=== PATIENT | male | born 1935 | race Caucasian/White ===

== ENCOUNTER 2018-09-08 20:56 | Inpatient (IN) | payer OTHER, MEDICAID ==
[~2018-09-08] VITALS: Ht 167.6 cm; Wt 74.8 kg
[2018-09-08 21:06] VITALS: BP_SYST 127
[2018-09-08 21:40] LABS: BASOPHILS # (AUTO) 0.1 K/uL (0.0-0.2); BASOPHILS % (AUTO) 0.7 % (0.0-2.0); EOSINOPHILS # (AUTO) 0.1 K/uL (0.0-0.4); EOSINOPHILS % (AUTO) 1.6 % (0.0-4.0); HEMOGLOBIN 12.4 g/dL (14.0-18.0); LYMPHOCYTES # (AUTO) 1.7 K/uL (1.0-5.5); LYMPHOCYTES % (AUTO) 22.2 % (20.5-51.5); MEAN CORPUSCULAR HEMOGLOBIN 29 pg (27-31); MEAN CORPUSCULAR HGB CONC 33 % (32-36); MEAN CORPUSCULAR VOLUME 88 fL (79.0-98.0); MONOCYTES # (AUTO) 0.8 K/uL (0.0-1.0); NEUTROPHILS # (AUTO) 4.9 K/uL (1.8-7.7); NEUTROPHILS % (AUTO) 64.5 % (40.0-70.0); PLATELET COUNT (AUTO) 278 K/uL (130-430); RED BLOOD CELL COUNT(AUTO) 4.34 MIL/uL (4.2-6.2); RED CELL DISTRIBUTION WIDTH 14.6 % (9.0-15.0); WHITE BLOOD COUNT (AUTO) 7.6 K/uL (4.8-10.8)
[2018-09-08] MEDS ORDERED: MOM PO (21:43)
[2018-09-08] MEDS ORDERED: FINA5TAB3 PO (21:43)
[2018-09-08] MEDS ORDERED: CRAN450C PO (21:43)
[2018-09-08] MEDS ORDERED: TRAV2.5D OP (21:43)
[2018-09-08] MEDS ORDERED: ASPI-1153 PO (21:43)
[2018-09-08] MEDS ORDERED: HYT1 PO (21:43)
[2018-09-08] MEDS ORDERED: DOCU-144 PO (21:43)
[2018-09-08] MEDS ORDERED: COMBIGAN OP (21:43)
[2018-09-08] MEDS ORDERED: ACET325T53 PO (21:43)
[2018-09-08] MEDS ORDERED: AMLO5TAB92 PO (21:43)
[2018-09-08 21:48] LABS: ANION GAP 5 (5-15); CALCIUM 8.5 mg/dL (8.4-11.0); CHLORIDE 103 mmol/L (98-107); CREATININE 1.06 mg/dL (0.55-1.30); GLUCOSE 115 mg/dL (70-99); POTASSIUM 3.9 mmol/L (3.5-5.1); SODIUM SERUM 136 mmol/L (136-145); UREA NITROGEN, BLOOD 20 mg/dL (8-21)
[2018-09-08 21:54] LABS: ALANINE AMINOTRANSFERASE 22 U/L (12-78); ALBUMIN 2.6 g/dL (3.4-4.8); ASPARTATE AMINOTRANSFERASE 18 U/L (10-37); TOTAL BILIRUBIN 0.4 mg/dL (0.0-1.0)
[2018-09-08] MEDS ORDERED: MILK OF MAGNESIA 30 ML UDC PO PRN (23:15)
[2018-09-08] MEDS ORDERED: ACETAMINOPHEN 325 MG TABLET PO PRN (23:15)
[2018-09-08] MEDS ORDERED: GENTAMICIN 100 mg/50 mL NS 50 ML IV SCH (23:15)
[2018-09-09 00:01] VITALS: BP_SYST 114
[2018-09-09] MEDS ORDERED: GENTAMICIN 100 mg/50 mL NS 50 ML IV ONE (00:14)
[2018-09-09] MEDS: D5/0.45 NS 1,000 ML IV SCH ×2 (03:12→16:24)
[2018-09-09 04:40] LABS: BILIRUBIN,URINE NEGATIVE (NEGATIVE); BLOOD, URINE 2+ (NEGATIVE); CLARITY/URINE HAZY (CLEAR); COLOR,URINE YELLOW (YELLOW); GLUCOSE,URINE NEGATIVE (NEGATIVE); KETONES,URINE NEGATIVE (NEGATIVE); LEUKOCYTE ESTERASE ,URINE 3+ (NEGATIVE); NITRITE, URINE NEGATIVE (NEGATIVE); PH,URINE 6.5 (5.0-8.0); PROTEIN URINE 2+ (NEGATIVE)
[2018-09-09 04:43] LABS: BACTERIA,URINE MANY /HPF (None Seen); WBC,URINE >100 /HPF (0-3)
[2018-09-09 04:44] LABS: YEAST,URINE Few /HPF (None Seen)
[2018-09-09] MEDS ORDERED: GENTAMICIN 100 mg/50 mL NS 50 ML IV SCH (05:00)
[2018-09-09 08:00] VITALS: BP_SYST 107
[2018-09-09] MEDS ORDERED: NON-FORMULARY MEDICATION (Cranberry Fruit Concentrate (Cranberry) 450 MG) PO SCH (09:00)
[2018-09-09] MEDS ORDERED: BRIMONIDINE TAR. 0.2%/TIMOLOL 0.5% EYE DROPS 5 ML OP SCH (09:00)
[2018-09-09] MEDS: amLODIPine BESYLATE 5 MG TABLET PO SCH (09:00)
[2018-09-09] MEDS: FINASTERIDE 5 MG TABLET (PROSCAR) PO SCH (09:33)
[2018-09-09] MEDS: MEGESTROL ACETATE 400 MG/10 ML UDC PO SCH ×2 (09:33→21:21)
[2018-09-09] MEDS: ASPIRIN 81 MG TABLET(ECOTRIN) PO SCH (09:33)
[2018-09-09] MEDS: DOCUSATE SODIUM 100 MG CAPSULE PO SCH ×2 (09:33→21:21)
[2018-09-09] MEDS: ENOXAPARIN SODIUM 40 MG/0.4 ML SYRINGE SUBCUT SCH (09:34)
[2018-09-09] MEDS: TIMOLOL MALEATE 0.5% OPHTHALMIC DROPS 5 ML OP SCH ×2 (09:35→21:23)
[2018-09-09] MEDS: BRIMONIDINE TARTRATE 0.2% 5 mL EYE DROPS OP SCH ×2 (09:35→21:23)
[2018-09-09 13:41] VITALS: BP_SYST 88
[2018-09-09 14:02] VITALS: BP_SYST 118
[2018-09-09 17:14] VITALS: BP_SYST 112
[2018-09-09 19:10] VITALS: BP_SYST 133
[2018-09-09] MEDS ORDERED: TRAVOPROST 0.004% 2.5 ML EYE DROPS OP SCH (21:00)
[2018-09-09] MEDS: TERAZOSIN HCL 1 MG CAPSULE (HYTRIN) PO SCH (21:21)
[2018-09-09] MEDS: LATANOPROST 2.5 ML DROPS (XALATAN) OP SCH (21:29)
[2018-09-10 00:24] VITALS: BP_SYST 130
[2018-09-10] MEDS: GENTAMICIN 100 mg/50 mL NS 50 ML IV SCH (05:45)
[2018-09-10] MEDS: D5/0.45 NS 1,000 ML IV SCH ×2 (05:45→21:43)
[2018-09-10 06:24] LABS: ANION GAP 5 (5-15); CALCIUM 8.4 mg/dL (8.4-11.0); CHLORIDE 105 mmol/L (98-107); CREATININE 0.86 mg/dL (0.55-1.30); GLUCOSE 103 mg/dL (70-99); POTASSIUM 3.4 mmol/L (3.5-5.1); SODIUM SERUM 135 mmol/L (136-145); UREA NITROGEN, BLOOD 11 mg/dL (8-21)
[2018-09-10 06:25] LABS: BASOPHILS % (AUTO) 0.4 % (0.0-2.0); EOSINOPHILS # (AUTO) 0.1 K/uL (0.0-0.4); EOSINOPHILS % (AUTO) 1.4 % (0.0-4.0); HEMATOCRIT 35.9 % (36-54); HEMOGLOBIN 11.7 g/dL (14.0-18.0); LYMPHOCYTES # (AUTO) 1.6 K/uL (1.0-5.5); LYMPHOCYTES % (AUTO) 23.9 % (20.5-51.5); MEAN CORPUSCULAR HEMOGLOBIN 29 pg (27-31); MEAN CORPUSCULAR HGB CONC 33 % (32-36); MEAN CORPUSCULAR VOLUME 88 fL (79.0-98.0); MONOCYTES # (AUTO) 0.7 K/uL (0.0-1.0); MONOCYTES % (AUTO) 10.4 % (1.7-9.3); NEUTROPHILS # (AUTO) 4.3 K/uL (1.8-7.7); NEUTROPHILS % (AUTO) 63.9 % (40.0-70.0); PLATELET COUNT (AUTO) 289 K/uL (130-430); RED CELL DISTRIBUTION WIDTH 14.7 % (9.0-15.0); WHITE BLOOD COUNT (AUTO) 6.8 K/uL (4.8-10.8)
[2018-09-10 07:59] VITALS: BP_SYST 135
[2018-09-10] MEDS: ASPIRIN 81 MG TABLET(ECOTRIN) PO SCH (08:18)
[2018-09-10] MEDS: MEGESTROL ACETATE 400 MG/10 ML UDC PO SCH ×2 (08:18→21:46)
[2018-09-10] MEDS: DOCUSATE SODIUM 100 MG CAPSULE PO SCH ×2 (08:19→21:45)
[2018-09-10] MEDS: FINASTERIDE 5 MG TABLET (PROSCAR) PO SCH (08:19)
[2018-09-10] MEDS: amLODIPine BESYLATE 5 MG TABLET PO SCH (08:20)
[2018-09-10] MEDS: BRIMONIDINE TARTRATE 0.2% 5 mL EYE DROPS OP SCH ×2 (08:22→21:44)
[2018-09-10] MEDS: TIMOLOL MALEATE 0.5% OPHTHALMIC DROPS 5 ML OP SCH ×2 (08:23→21:45)
[2018-09-10] MEDS: ENOXAPARIN SODIUM 40 MG/0.4 ML SYRINGE SUBCUT SCH (08:24)
[2018-09-10 12:02] VITALS: BP_SYST 116
[2018-09-10] MEDS ORDERED: POTASSIUM CHLORIDE 20 MEQ TAB.PRT.SR PO ONE (14:45)
[2018-09-10 16:02] VITALS: BP_SYST 107
[2018-09-10 19:00] VITALS: BP_SYST 120
[2018-09-10] MEDS: LATANOPROST 2.5 ML DROPS (XALATAN) OP SCH (21:45)
[2018-09-10] MEDS: TERAZOSIN HCL 1 MG CAPSULE (HYTRIN) PO SCH (21:46)
[2018-09-10 23:17] VITALS: BP_SYST 138
[2018-09-11] MEDS: GENTAMICIN 100 mg/50 mL NS 50 ML IV SCH (05:03)
[2018-09-11 07:52] VITALS: BP_SYST 119
[2018-09-11] MEDS: MEGESTROL ACETATE 400 MG/10 ML UDC PO SCH (08:24)
[2018-09-11] MEDS: DOCUSATE SODIUM 100 MG CAPSULE PO SCH (08:24)
[2018-09-11] MEDS: ASPIRIN 81 MG TABLET(ECOTRIN) PO SCH (08:24)
[2018-09-11] MEDS: FINASTERIDE 5 MG TABLET (PROSCAR) PO SCH (08:24)
[2018-09-11] MEDS: amLODIPine BESYLATE 5 MG TABLET PO SCH (08:25)
[2018-09-11] MEDS: ENOXAPARIN SODIUM 40 MG/0.4 ML SYRINGE SUBCUT SCH (08:26)
[2018-09-11] MEDS: TIMOLOL MALEATE 0.5% OPHTHALMIC DROPS 5 ML OP SCH (08:27)
[2018-09-11] MEDS: BRIMONIDINE TARTRATE 0.2% 5 mL EYE DROPS OP SCH (08:27)
[2018-09-11] MEDS: D5/0.45 NS 1,000 ML IV SCH (08:28)
[2018-09-11 12:13] VITALS: BP_SYST 122
[2018-09-11 15:50] VITALS: BP_SYST 100
[2018-09-11 16:12] VITALS: BP_SYST 100
== END 2018-09-11 18:35 | DRG 70 ==
LOC: SMU 20:56
PROVIDERS: ADMIT Family Medicine; ATTEND Family Medicine
DX: G93.41 Metabolic encephalopathy (principal); E43 Unspecified severe protein-calorie malnutrition; N39.0 Urinary tract infection, site not specified; I10 Essential (primary) hypertension; N40.0 Benign prostatic hyperplasia without lower urinary tract symptoms; M19.90 Unspecified osteoarthritis, unspecified site; Z88.0 Allergy status to penicillin; Z68.26 Body mass index [BMI] 26.0-26.9, adult
CPT/HCPCS: 36415; 80048; 80053; 80170-TC; 81000-TC; 85025; 87081; 87086; J1580; J1650